=== PATIENT | female | born 2000 | race Two or more races ===

== ENCOUNTER 2023-07-09 18:00 | Inpatient (IN) | payer OTHER ==
[2023-07-09 20:06] LABS: BASO % 0.3 % (0-2.0); EOS % 0.6 % (0-4.5); HEMATOCRIT 31.5 % (32.4-45.2); HEMOGLOBIN 10.9 GM/dL (10.7-15.3); LYMPH % 26.9 % (8-40); MCH 29.1 pg (25.7-33.7); MCHC 34.5 g/dl (32.0-36.0); MEAN CELL VOLUME 84.6 fl (80-96); MEAN PLT VOLUME 6.8 fl (7.5-11.1); MONO % 6.2 % (3.8-10.2); PLATELET COUNT 315 10^3/uL (134-434); RBC 3.73 M/mm3 (3.60-5.2); RDW 15.1 % (11.6-15.6); WHITE BLOOD COUNT 10.2 K/mm3 (4.0-10.0)
[2023-07-09] MEDS ORDERED: PROMETHAZINE HCL 25 MG/1 ML VIAL IVPB ONE (20:09)
[2023-07-09] MEDS ORDERED: BUTORPHANOL TARTRATE 1 MG/ML VIAL IVPUSH ONE (20:09)
[2023-07-09 20:11] LABS: INR 1.1 (0.83-1.09); PROTHROMBIN TIME (PATIENT) 12.7 SEC (9.7-13.0)
[2023-07-09 20:13] LABS: ACTIVATED PTT 33.4 SECONDS (25.2-36.5)
[2023-07-09] MEDS: ELECTROLYTE-148 SOLN 1,000 ML IV SCH (20:15)
[2023-07-09 20:58] LABS: POTASSIUM 3.8 mmol/L (3.5-5.1)
[2023-07-09 20:59] LABS: CALCIUM 8.4 mg/dL (8.5-10.1)
[2023-07-09 21:01] LABS: BLOOD UREA NITROGEN 4.7 mg/dL (7-18)
[2023-07-09 21:03] LABS: CREATININE 0.5 mg/dL (0.55-1.3)
[2023-07-09 21:05] VITALS: BMI 36.6
[2023-07-09] MEDS ORDERED: AMPICILLIN SODIUM 2 GM VIAL ONE ×2 (21:06→21:07)
[2023-07-09] MEDS ORDERED: AMPICILLIN - 2 GM in SODIUM CHLORIDE 100 ML IVPB ONE (21:13)
[2023-07-09] MEDS ORDERED: PROMETHAZINE HCL 25 MG/1 ML VIAL ONE (22:43)
[2023-07-09] MEDS ORDERED: BUTORPHANOL TARTRATE 1 MG/ML VIAL ONE (22:43)
[2023-07-10] MEDS ORDERED: OXYTOCIN 20 UNITS in 0.9% NS 20 UNIT/1,000 ML INFUS.BAG IV ONE (01:10)
[2023-07-10] MEDS ORDERED: LIDOCAINE HCL 1% PRESERVATIVE FREE - 30ML VIAL ONE (01:10)
[2023-07-10] MEDS ORDERED: BISACODYL 10 MG SUPP.RECT RC PRN (01:26)
[2023-07-10] MEDS ORDERED: WITCH HAZEL 50% (TUCKS) 40 PAD/JAR PAD TP PRN (01:26)
[2023-07-10] MEDS ORDERED: BENZOCAINE 20% 57 GM BOTTLE TP PRN (01:26)
[2023-07-10] MEDS ORDERED: BENZOCAINE 28 GM HEMORRHOIDAL OINTMENT TP PRN (01:26)
[2023-07-10] MEDS ORDERED: METHYLERGONOVINE MALEATE 0.2 MG/1 ML AMP IM PRN (01:26)
[2023-07-10] MEDS ORDERED: oxyCODONE HCL 5 MG TABLET PO PRN (01:26)
[2023-07-10] MEDS ORDERED: OXYTOCIN 20 UNITS in 0.9% NS 20 UNIT/1,000 ML INFUS.BAG IV SCH (01:30)
[2023-07-10 02:36] LABS: CORD BASE EXCESS -2.2 mmol/L (0-2); CORD HCO3 25.1 mmHg (20-29); CORD PCO2 52.7 mmHg (30-78); CORD pH 7.296 (7.14-7.44)
[2023-07-10 02:39] LABS: CORD BASE EXCESS -2.8 mmol/L (0-2); CORD HCO3 23.1 mmHg (20-29); CORD PCO2 44.4 mmHg (30-78); CORD pH 7.335 (7.14-7.44)
[2023-07-10] MEDS: IBUPROFEN 600 MG TABLET (FP) PO PRN ×3 (02:57→23:59)
[2023-07-10 06:37] VITALS: RESP 18
[2023-07-10] MEDS: ACETAMINOPHEN 325 MG TABLET (FP) PO PRN (18:52)
[2023-07-11] MEDS: IBUPROFEN 600 MG TABLET (FP) PO PRN ×3 (06:20→23:42)
[2023-07-11 06:43] LABS: BASO % 0.3 % (0-2.0); EOS % 2.2 % (0-4.5); HEMATOCRIT 31.8 % (32.4-45.2); HEMOGLOBIN 10.5 GM/dL (10.7-15.3); LYMPH % 40.3 % (8-40); MCH 28.3 pg (25.7-33.7); MCHC 32.9 g/dl (32.0-36.0); MEAN PLT VOLUME 7.3 fl (7.5-11.1); MONO % 6.5 % (3.8-10.2); NEUT % 50.7 % (42.8-82.8); PLATELET COUNT 297 10^3/uL (134-434); RDW 15.5 % (11.6-15.6); WHITE BLOOD COUNT 9.3 K/mm3 (4.0-10.0)
[2023-07-11] MEDS: ELECTROLYTE-148 SOLN 1,000 ML IV SCH (19:13)
[2023-07-11] MEDS: ACETAMINOPHEN 325 MG TABLET (FP) PO PRN (20:59)
[2023-07-11] MEDS ORDERED: SENNOSIDES/DOCUSATE COMBO (SENNA PLUS) TABLET (UD) PO PRN (22:00)
[2023-07-12] MEDS: IBUPROFEN 600 MG TABLET (FP) PO PRN ×2 (03:46→08:01)
[2023-07-12 09:38] VITALS: BP 119/83; PULSE 82; TEMP 99
== END 2023-07-12 13:15 | disposition home or self-care (01) | DRG 560 ==
LOC: JDEL 18:00 → JLDR 19:33 → J3W 07-10 02:37
PROVIDERS: ADMIT Obstetrics & Gynecology; ATTEND Obstetrics & Gynecology
PROC: 10E0XZZ Delivery of Products of Conception, External Approach (ICD-10-PCS; principal; 2023-07-10)
DX: O80 Encounter for full-term uncomplicated delivery (principal); Z3A.39 39 weeks gestation of pregnancy; Z37.0 Single live birth
CPT/HCPCS: 36415; 36600; 59025; 80048; 82803; 85025; 85610; 85730; 86780; 86850; 86900; 86901; G0463-25

== ENCOUNTER 2024-04-30 00:13 | Emergency (ER) | payer OTHER ==
[2024-04-30 00:24] VITALS: BP 111/68; PULSE 102; RESP 18; TEMP 98.4; BMI 31.8
[2024-04-30 01:07] LABS: THROAT:GRP A STREP DETECTED (NOTDETECTED)
[2024-04-30] MEDS ORDERED: DEXAMETHASONE SOD PHOSPHATE 10 MG/1 ML VIAL ONE (01:41)
[2024-04-30] MEDS ORDERED: IBUPROFEN 400 MG TABLET (FP) PO ONE (01:41)
[2024-04-30] MEDS: IBUPROFEN 400 MG TABLET (FP) PO ONE (01:42)
[2024-04-30] MEDS: DEXAMETHASONE SOD PHOSPHATE 10 MG/1 ML VIAL PO ONE (01:43)
[2024-04-30] MEDS: PENICILLIN G BENZATHINE 1,200,000 UNIT/2 ML PFS IM ONE (01:45)
== END 2024-04-30 01:50 | disposition home or self-care (01) ==
LOC: JER 00:13
DX: U07.1 COVID-19 (principal); J02.0 Streptococcal pharyngitis; R09.81 Nasal congestion
CPT/HCPCS: 0241U-QW; 87651; 99284-25; J1100